=== PATIENT | male | born 1925 | race Caucasian/White ===

== ENCOUNTER 2017-04-11 17:38 | Inpatient (IN) | payer MEDICARE, OTHER ==
[~2017-04-11] VITALS: Ht 170.2 cm; Wt 73.9 kg
[~2017-04-11 17:38] MED LIST: ACCU CHEK STRIPS TP; CLOP75TA35 PO; HYDR-3965 PO; IPRA3AMP IH; ISOS30TA6 PO; OXYB15TA PO; PARO40TA4 PO; PRAV80TA3 PO
[2017-04-11 18:06] LABS: BASOPHILS % (AUTO) 0.5 % (0-1); EOSINOPHILS # (AUTO) 0.2 X10'3 (0-0.9); EOSINOPHILS % (AUTO) 4.1 % (0-6); HEMATOCRIT 42.5 % (42.0-52.0); LYMPHOCYTES # (AUTO) 2.2 X10'3 (1.1-4.8); LYMPHOCYTES % (AUTO) 37.1 % (21-51); MEAN CORPUSCULAR HEMOGLOBIN 28.1 PG (27.0-31.0); MEAN CORPUSCULAR HGB CONC 32.9 % (33.0-36.5); MEAN CORPUSCULAR VOLUME 85.5 FL (78-98); MONOCYTES # (AUTO) 0.4 X10'3 (0-0.9); MONOCYTES % (AUTO) 6.5 % (2-12); NEUTROPHILS % (AUTO) 51.8 % (42-75); PLATELET COUNT 267 X10'3 (140-440); RED BLOOD COUNT 4.97 X10'6 (4.70-6.10); RED CELL DISTRIBUTION WIDTH 13.5 % (11.5-14.5); WHITE BLOOD COUNT 5.8 X10'3 (4.5-11.0)
[2017-04-11 18:16] LABS: PARTIAL THROMBOPLASTIN TIME 28 SECONDS (22-32); PROTHROMBIN TIME 10.2 SECONDS (9.0-12.0)
[2017-04-11 18:26] LABS: ALANINE AMINOTRANSFERASE 54 U/L (12-78); ALBUMIN 3.6 G/DL (3.4-5.0); ALKALINE PHOSPHATASE 158 IU/L (46-116); ANION GAP 10 (8-16); ASPARTATE AMINO TRANSFERASE 36 U/L (10-37); BILIRUBIN,TOTAL 0.4 MG/DL (0.1-1.0); BLOOD UREA NITROGEN 22 MG/DL (7-18); BUN/CREATININE RATIO 13.4 (5.4-32.0); CALCIUM 9.3 MG/DL (8.5-10.1); CHLORIDE 103 MMOL/L (99-107); CREATININE 1.64 MG/DL (0.60-1.10); GLUCOSE 340 MG/DL (70-104); POTASSIUM 4.7 MMOL/L (3.5-5.1); SODIUM 139 MMOL/L (135-145); TOTAL CARBON DIOXIDE 25.7 MMOL/L (24-32); TOTAL PROTEIN 7.2 G/DL (6.4-8.2); eGFR 40 ML/MIN
[2017-04-11] MEDS ORDERED: acetaminophen 325mg tablet PO PRN ×2 (20:20)
[2017-04-11] MEDS ORDERED: mag hydrox/Alum hydrox/simeth 30ml oral suspension PO PRN (20:20)
[2017-04-11] MEDS ORDERED: magnesium hydroxide 30ml (MOM) UD suspension PO PRN (20:20)
[2017-04-11] MEDS ORDERED: Insulin Detemir pen SQ STA (20:22)
[2017-04-11] MEDS ORDERED: dextrose 50%-water 50ml dispensing syringe IV PRN ×2 (20:25)
[2017-04-11] MEDS ORDERED: aspirin 325mg tablet PO ONE (20:25)
[2017-04-11] MEDS ORDERED: dextrose ORAL solution 15 GM/59 ML bottle PO PRN ×2 (20:25)
[2017-04-11] MEDS ORDERED: MESSAGE TO PHARMACY PO ONE (20:25)
[2017-04-11] MEDS ORDERED: glucagon, human recombinant 1mg kit SUBCUT PRN (20:25)
[2017-04-11] MEDS: Insulin Detemir pen SQ SCH (21:00)
[2017-04-11] MEDS: ipratropium/albuterol 3ml nebule IH SCH (22:29)
[2017-04-12 07:23] LABS: BASOPHILS % (AUTO) 0.5 % (0-1); EOSINOPHILS # (AUTO) 0.2 X10'3 (0-0.9); EOSINOPHILS % (AUTO) 3.8 % (0-6); HEMATOCRIT 37.3 % (42.0-52.0); HEMOGLOBIN 12.2 g/dl (14.0-17.9); LYMPHOCYTES # (AUTO) 1.5 X10'3 (1.1-4.8); LYMPHOCYTES % (AUTO) 32.9 % (21-51); MEAN CORPUSCULAR HEMOGLOBIN 28.1 PG (27.0-31.0); MEAN CORPUSCULAR HGB CONC 32.8 % (33.0-36.5); MEAN CORPUSCULAR VOLUME 85.8 FL (78-98); MEAN PLATELET VOLUME 6.9 FL (7.4-10.4); MONOCYTES # (AUTO) 0.4 X10'3 (0-0.9); MONOCYTES % (AUTO) 8.7 % (2-12); NEUTROPHILS # (AUTO) 2.5 X10'3 (1.8-7.7); NEUTROPHILS % (AUTO) 54.1 % (42-75); PLATELET COUNT 245 X10'3 (140-440); RED BLOOD COUNT 4.34 X10'6 (4.70-6.10); RED CELL DISTRIBUTION WIDTH 13.6 % (11.5-14.5); WHITE BLOOD COUNT 4.7 X10'3 (4.5-11.0)
[2017-04-12 07:43] LABS: ANION GAP 8 (8-16); BLOOD UREA NITROGEN 22 MG/DL (7-18); BUN/CREATININE RATIO 15.8 (5.4-32.0); CALCIUM 8.5 MG/DL (8.5-10.1); CHLORIDE 106 MMOL/L (99-107); CREATININE 1.39 MG/DL (0.60-1.10); GLUCOSE 285 MG/DL (70-104); POTASSIUM 4.2 MMOL/L (3.5-5.1); SODIUM 141 MMOL/L (135-145); eGFR 48 ML/MIN
[2017-04-12] MEDS: ipratropium/albuterol 3ml nebule IH SCH ×2 (08:12→20:43)
[2017-04-12] MEDS: atorvastatin 20mg tablet PO SCH (08:13)
[2017-04-12] MEDS: isosorbide mononitrate 30mg tab.SR.24H PO SCH (08:13)
[2017-04-12] MEDS: oxybutynin 5mg tablet PO SCH (08:13)
[2017-04-12] MEDS: clopidogrel 75mg tablet PO SCH (08:13)
[2017-04-12] MEDS: PARoxetine 20mg tablet PO SCH (08:13)
[2017-04-12] MEDS: ondansetron/PF 4mg/2ml inj IV PRN ×2 (09:20→19:29)
[2017-04-12] MEDS: insulin Lispro (HumaLOG) vial - multi-dose SQ SCH ×3 (09:39→19:50)
[2017-04-12 11:00] VITALS: BP 99/52
[2017-04-12 15:00] VITALS: BP 122/68
[2017-04-12 19:00] VITALS: BP 141/77
[2017-04-12] MEDS: Insulin Detemir pen SQ SCH (21:24)
[2017-04-12 22:00] VITALS: BP 112/64
[2017-04-13 02:00] VITALS: BP 127/70
[2017-04-13 05:36] LABS: BASOPHILS % (AUTO) 0 % (0-1); EOSINOPHILS # (AUTO) 0.1 X10'3 (0-0.9); EOSINOPHILS % (AUTO) 1.4 % (0-6); HEMATOCRIT 38.7 % (42.0-52.0); HEMOGLOBIN 12.7 g/dl (14.0-17.9); LYMPHOCYTES # (AUTO) 1.4 X10'3 (1.1-4.8); LYMPHOCYTES % (AUTO) 24.3 % (21-51); MEAN CORPUSCULAR HEMOGLOBIN 28.3 PG (27.0-31.0); MEAN CORPUSCULAR HGB CONC 32.9 % (33.0-36.5); MEAN CORPUSCULAR VOLUME 86.1 FL (78-98); MEAN PLATELET VOLUME 7.5 FL (7.4-10.4); MONOCYTES # (AUTO) 0.6 X10'3 (0-0.9); MONOCYTES % (AUTO) 11.4 % (2-12); NEUTROPHILS # (AUTO) 3.6 X10'3 (1.8-7.7); NEUTROPHILS % (AUTO) 62.9 % (42-75); PLATELET COUNT 239 X10'3 (140-440); RED CELL DISTRIBUTION WIDTH 13.7 % (11.5-14.5); WHITE BLOOD COUNT 5.7 X10'3 (4.5-11.0)
[2017-04-13 05:57] LABS: ANION GAP 7 (8-16); BLOOD UREA NITROGEN 33 MG/DL (7-18); BUN/CREATININE RATIO 18.3 (5.4-32.0); CALCIUM 8.6 MG/DL (8.5-10.1); CHLORIDE 105 MMOL/L (99-107); GLUCOSE 203 MG/DL (70-104); POTASSIUM 4.7 MMOL/L (3.5-5.1); SODIUM 139 MMOL/L (135-145); TOTAL CARBON DIOXIDE 26.8 MMOL/L (24-32); eGFR 36 ML/MIN
[2017-04-13 06:35] VITALS: BP 132/72
[2017-04-13] MEDS: ipratropium/albuterol 3ml nebule IH SCH ×2 (08:03→21:13)
[2017-04-13] MEDS: insulin Lispro (HumaLOG) vial - multi-dose SQ SCH ×3 (09:45→21:56)
[2017-04-13] MEDS: oxybutynin 5mg tablet PO SCH (09:47)
[2017-04-13] MEDS: clopidogrel 75mg tablet PO SCH (09:47)
[2017-04-13] MEDS: PARoxetine 20mg tablet PO SCH (09:47)
[2017-04-13] MEDS: isosorbide mononitrate 30mg tab.SR.24H PO SCH (09:47)
[2017-04-13] MEDS: atorvastatin 20mg tablet PO SCH (09:47)
[2017-04-13 11:00] VITALS: BP 105/62
[2017-04-13] MEDS: ondansetron/PF 4mg/2ml inj IV PRN (13:41)
[2017-04-13 15:00] VITALS: BP 109/58
[2017-04-13] MEDS ORDERED: diphenoxylate/atropine tablet (Lomotil) PO PRN (17:05)
[2017-04-13 19:00] VITALS: BP 112/43
[2017-04-13] MEDS: Insulin Detemir pen SQ SCH (21:55)
[2017-04-13 23:00] VITALS: BP 114/58
[2017-04-14 03:00] VITALS: BP 112/56
[2017-04-14 04:58] LABS: BASOPHILS % (AUTO) 0.3 % (0-1); EOSINOPHILS # (AUTO) 0.2 X10'3 (0-0.9); EOSINOPHILS % (AUTO) 3.7 % (0-6); HEMATOCRIT 35.3 % (42.0-52.0); HEMOGLOBIN 11.6 g/dl (14.0-17.9); LYMPHOCYTES # (AUTO) 1.3 X10'3 (1.1-4.8); LYMPHOCYTES % (AUTO) 23.9 % (21-51); MEAN CORPUSCULAR HEMOGLOBIN 28.2 PG (27.0-31.0); MEAN CORPUSCULAR VOLUME 85.4 FL (78-98); MEAN PLATELET VOLUME 7.5 FL (7.4-10.4); MONOCYTES # (AUTO) 0.5 X10'3 (0-0.9); MONOCYTES % (AUTO) 9.6 % (2-12); NEUTROPHILS # (AUTO) 3.3 X10'3 (1.8-7.7); NEUTROPHILS % (AUTO) 62.5 % (42-75); PLATELET COUNT 209 X10'3 (140-440); RED BLOOD COUNT 4.13 X10'6 (4.70-6.10); RED CELL DISTRIBUTION WIDTH 13.4 % (11.5-14.5); WHITE BLOOD COUNT 5.3 X10'3 (4.5-11.0)
[2017-04-14 05:16] LABS: ALBUMIN 2.8 G/DL (3.4-5.0); ANION GAP 8 (8-16); BLOOD UREA NITROGEN 36 MG/DL (7-18); CHLORIDE 102 MMOL/L (99-107); CREATININE 1.89 MG/DL (0.60-1.10); GLUCOSE 232 MG/DL (70-104); POTASSIUM 3.5 MMOL/L (3.5-5.1); SODIUM 135 MMOL/L (135-145); TOTAL CARBON DIOXIDE 25.1 MMOL/L (24-32); eGFR 34 ML/MIN
[2017-04-14 06:00] VITALS: BP 131/70
[2017-04-14] MEDS: oxybutynin 5mg tablet PO SCH (07:47)
[2017-04-14] MEDS: clopidogrel 75mg tablet PO SCH (07:47)
[2017-04-14] MEDS: PARoxetine 20mg tablet PO SCH (07:47)
[2017-04-14] MEDS: isosorbide mononitrate 30mg tab.SR.24H PO SCH (07:47)
[2017-04-14] MEDS: atorvastatin 20mg tablet PO SCH (07:47)
[2017-04-14] MEDS: insulin Lispro (HumaLOG) vial - multi-dose SQ SCH (07:56)
[2017-04-14] MEDS: ipratropium/albuterol 3ml nebule IH SCH (08:20)
== END 2017-04-14 11:15 | disposition home or self-care (01) | DRG 313 ==
LOC: ER 17:38 → ED HOLD 20:20 → PCU 3S 04-12 11:00 → OBSVTOIN 04-12 12:26
PROVIDERS: ADMIT Internal Medicine; ATTEND Family Medicine
DX: R07.89 Other chest pain (principal); I25.10 Atherosclerotic heart disease of native coronary artery without angina pectoris; N17.9 Acute kidney failure, unspecified; E11.22 Type 2 diabetes mellitus with diabetic chronic kidney disease; I13.0 Hypertensive heart and chronic kidney disease with heart failure and stage 1 through stage 4 chronic kidney disease, or unspecified chronic kidney disease; I48.91 Unspecified atrial fibrillation; I50.9 Heart failure, unspecified; E78.5 Hyperlipidemia, unspecified; F32.9 Major depressive disorder, single episode, unspecified; K52.9 Noninfective gastroenteritis and colitis, unspecified; R42 Dizziness and giddiness; J44.9 Chronic obstructive pulmonary disease, unspecified; N18.9 Chronic kidney disease, unspecified; Z66 Do not resuscitate; Z95.5 Presence of coronary angioplasty implant and graft; Z79.02 Long term (current) use of antithrombotics/antiplatelets; Z79.899 Other long term (current) drug therapy; Z91.013 Allergy to seafood; Z91.048 Other nonmedicinal substance allergy status; Z86.73 Personal history of transient ischemic attack (TIA), and cerebral infarction without residual deficits; Z82.49 Family history of ischemic heart disease and other diseases of the circulatory system
CPT/HCPCS: 36415; 71045; 80048; 80053; 82948; 84484; 85025; 85610; 85730; 87070; 94640; 94760; 96372; 99285; G0378; J2405; J7030

== ENCOUNTER 2017-05-14 03:29 | Emergency (ER) | payer MEDICARE, OTHER ==
[~2017-05-14] VITALS: Ht 170.2 cm; Wt 75.0 kg
[~2017-05-14 03:29] MED LIST changes: -HYDR-3965 PO
[2017-05-14] MEDS ORDERED: ipratropium/albuterol 3ml nebule NEB ONE (03:35)
[2017-05-14] MEDS ORDERED: ALBU8HFA PO (04:18)
[2017-05-14] MEDS ORDERED: piperacillin/tazo 3.375gm/50ml 50 ML IV ONE (04:20)
[2017-05-14 04:58] VITALS: BP 120/65
== END 2017-05-14 05:04 | disposition home or self-care (01) ==
LOC: ER 03:31
DX: J06.9 Acute upper respiratory infection, unspecified (principal); I48.91 Unspecified atrial fibrillation; I25.10 Atherosclerotic heart disease of native coronary artery without angina pectoris; I11.0 Hypertensive heart disease with heart failure; I50.9 Heart failure, unspecified; J44.9 Chronic obstructive pulmonary disease, unspecified; E11.9 Type 2 diabetes mellitus without complications; F17.200 Nicotine dependence, unspecified, uncomplicated; Z98.890 Other specified postprocedural states; Z79.899 Other long term (current) drug therapy; Z88.8 Allergy status to other drugs, medicaments and biological substances
CPT/HCPCS: 71046; 94640; 94760; 99284

== ENCOUNTER 2017-05-23 08:15 | Emergency (ER) | payer MEDICARE, OTHER ==
[~2017-05-23] VITALS: Ht 170.2 cm; Wt 73.0 kg
[~2017-05-23 08:15] MED LIST changes: +ALBU8HFA PO
[2017-05-23 08:27] VITALS: BP 134/60
[2017-05-23 09:02] LABS: BASOPHILS % (AUTO) 0.4 % (0-1); EOSINOPHILS # (AUTO) 0.1 X10'3 (0-0.9); EOSINOPHILS % (AUTO) 2.5 % (0-6); HEMOGLOBIN 11.1 g/dl (14.0-17.9); LYMPHOCYTES % (AUTO) 19.1 % (21-51); MEAN CORPUSCULAR HEMOGLOBIN 28.1 PG (27.0-31.0); MEAN CORPUSCULAR HGB CONC 33.7 % (33.0-36.5); MEAN CORPUSCULAR VOLUME 83.3 FL (78-98); MEAN PLATELET VOLUME 6.3 FL (7.4-10.4); MONOCYTES # (AUTO) 0.6 X10'3 (0-0.9); MONOCYTES % (AUTO) 11.7 % (2-12); NEUTROPHILS # (AUTO) 3.5 X10'3 (1.8-7.7); NEUTROPHILS % (AUTO) 66.3 % (42-75); PLATELET COUNT 245 X10'3 (140-440); RED BLOOD COUNT 3.96 X10'6 (4.70-6.10); RED CELL DISTRIBUTION WIDTH 13.4 % (11.5-14.5); WHITE BLOOD COUNT 5.3 X10'3 (4.5-11.0)
[2017-05-23 09:11] LABS: PARTIAL THROMBOPLASTIN TIME 30 SECONDS (22-32); PROTHROMBIN TIME 10.5 SECONDS (9.0-12.0)
[2017-05-23] MEDS ORDERED: levoFLOXACIN 250mg tablet PO ONE (09:25)
[2017-05-23 09:28] LABS: ALANINE AMINOTRANSFERASE 28 U/L (12-78); ALBUMIN/GLOBULIN RATIO 0.9 (1.1-1.5); ALKALINE PHOSPHATASE 114 IU/L (46-116); ANION GAP 11 (8-16); ASPARTATE AMINO TRANSFERASE 17 U/L (10-37); BILIRUBIN,TOTAL 0.3 MG/DL (0.1-1.0); BLOOD UREA NITROGEN 27 MG/DL (7-18); BUN/CREATININE RATIO 16.3 (5.4-32.0); CALCIUM 8.2 MG/DL (8.5-10.1); CHLORIDE 102 MMOL/L (99-107); CREATININE 1.66 MG/DL (0.60-1.10); GLUCOSE 293 MG/DL (70-104); POTASSIUM 4.4 MMOL/L (3.5-5.1); SODIUM 136 MMOL/L (135-145); TOTAL CARBON DIOXIDE 23.5 MMOL/L (24-32); TOTAL PROTEIN 6.2 G/DL (6.4-8.2); eGFR 39 ML/MIN
[2017-05-23] MEDS ORDERED: LEVO500T89 PO (09:37)
[2017-05-23] MEDS ORDERED: BENZ-16 PO (09:39)
== END 2017-05-23 10:28 | disposition home or self-care (01) ==
LOC: ER 08:17
DX: J22 Unspecified acute lower respiratory infection (principal); I48.91 Unspecified atrial fibrillation; I25.10 Atherosclerotic heart disease of native coronary artery without angina pectoris; I11.0 Hypertensive heart disease with heart failure; I50.9 Heart failure, unspecified; E11.9 Type 2 diabetes mellitus without complications; J44.9 Chronic obstructive pulmonary disease, unspecified; Z88.8 Allergy status to other drugs, medicaments and biological substances; Z79.899 Other long term (current) drug therapy
CPT/HCPCS: 36415; 71045; 80053; 83605; 83880; 84484; 85025; 85610; 85730; 87040; 93005; 99285